=== PATIENT | male | born 2000 | race Caucasian/White ===

== ENCOUNTER 2022-07-11 11:50 | Emergency (ER) | payer BC ==
[2022-07-11] MEDS ORDERED: Sodium Chloride 0.9% 1,000 ML IV STA (13:11)
[2022-07-11] MEDS ORDERED: Ondansetron 4 MG/2 ML SDV IVPUSH ONE (13:11)
== END 2022-07-11 17:36 | disposition home or self-care (01) ==
LOC: JD.ED 11:50
DX: N50.82 Scrotal pain (principal); F17.210 Nicotine dependence, cigarettes, uncomplicated; Z03.6 Encounter for observation for suspected toxic effect from ingested substance ruled out
CPT/HCPCS: 36415; 76870; 80053; 80306; 81001; 83735; 85025; 93975; 96361; 96374; 99284; J2405; J7030